=== PATIENT | female | born 1995 | race Caucasian/White ===

== ENCOUNTER 2018-12-07 09:07 | Emergency (ER) | payer OTHER ==
[~2018-12-07] VITALS: Ht 175.3 cm; Wt 83.9 kg
[~2018-12-07 09:07] MED LIST: FLEXERIL PO; IBUPROFEN 800800 M1 PO; NOHOMEMEDICATIONS; NORCO 5-325 TA1 EACH PO; NUVARING VAGIN1 EACH VG
[2018-12-07] MEDS ORDERED: VENTOLIN HFA 1818 GM INH (09:20)
[2018-12-07] MEDS ORDERED: FLOVENT HFA 4444 MCG INH (09:20)
[2018-12-07] MEDS ORDERED: PROMETHAZINE-C473 ML PO (09:20)
[2018-12-07] MEDS ORDERED: DOXYCYCLINE HY100 M3 PO (09:38)
[2018-12-07 10:06] VITALS: BP 141/70
== END 2018-12-07 10:06 | disposition home or self-care (01) ==
LOC: ER 09:07
DX: J31.0 Chronic rhinitis (principal); J45.909 Unspecified asthma, uncomplicated; J02.9 Acute pharyngitis, unspecified